=== PATIENT | female | born 2000 | race Caucasian/White ===

== ENCOUNTER 2023-11-26 06:51 | Day surgery (SDC) | payer OTHER ==
[2023-11-26] MEDS ORDERED: NS 0 ML IV ONE (11:57)
[2023-11-26] MEDS ORDERED: Lidocaine PF 2% (20 MG/ML) 5 ML VIAL ONE (11:57)
[2023-11-26] MEDS ORDERED: Rocuronium 50 MG/5 ML Multi-Dose VIAL ONE (11:57)
[2023-11-26] MEDS ORDERED: Ondansetron 4 MG/2 ML VIAL ONE (11:57)
[2023-11-26] MEDS ORDERED: fentaNYL 50 MCG/ML 2 ML VIAL ONE ×2 (11:57→12:18)
[2023-11-26] MEDS ORDERED: dexAMETHasone 10 MG/ML VIAL ONE (11:57)
== END 2023-11-26 18:00 | disposition home or self-care (01) ==
LOC: SDCO 06:51 → SURG 09:30 → SDCO 18:00
DX: K80.00 Calculus of gallbladder with acute cholecystitis without obstruction (principal); Z79.82 Long term (current) use of aspirin
CPT/HCPCS: OP; J0690; J1100; J2405; J2704; J3010